=== PATIENT | male | born 2000 | race Caucasian/White ===

== ENCOUNTER 2022-07-02 02:41 | Emergency (ER) | payer OTHER, BC ==
[2022-07-02] MEDS ORDERED: Cephalexin 250 MG CAP ONE (05:39)
== END 2022-07-02 05:45 | disposition home or self-care (01) ==
LOC: CSHERS 02:41
DX: S01.81XA Laceration without foreign body of other part of head, initial encounter (principal); W01.0XXA Fall on same level from slipping, tripping and stumbling without subsequent striking against object, initial encounter; Y92.009 Unspecified place in unspecified non-institutional (private) residence as the place of occurrence of the external cause
CPT/HCPCS: 12014; 70450